=== PATIENT | female | born 1970 | race Asian ===

== ENCOUNTER 2020-11-29 07:58 | Day surgery (SDC) | payer OTHER ==
[2020-11-29] MEDS ORDERED: Ringers Lactate 1,000 ML IV ONE (08:35)
[2020-11-29] MEDS ORDERED: ONDANSETRON 4 MG/2 ML VIAL ONE (10:18)
[2020-11-29] MEDS ORDERED: MIDAZOLAM HCL 2 MG/2 ML INJ ONE (10:18)
[2020-11-29] MEDS ORDERED: FENTANYL CITR 100 MCG/2 ML ONE (10:18)
[2020-11-29] MEDS ORDERED: LIDOCAINE 2% MPF 5 ML VIAL ONE (10:18)
[2020-11-29] MEDS ORDERED: dexAMETHasone 10 MG/ML VIAL ONE (10:18)
[2020-11-29] MEDS ORDERED: propofoL 200 MG/20 ML VIAL IV ONE (10:18)
[2020-11-29] MEDS ORDERED: NA CHLORIDE 0.9% 1,000 ML ONE (10:47)
[2020-11-29] MEDS ORDERED: LIDOCAINE 1% W/EPI 1:100,000 MDV 20 ML VIAL ONE (11:03)
[2020-11-29] MEDS ORDERED: KETOROLAC 30 MG/ML INJ ONE (12:08)
[2020-11-29 12:34] VITALS: TEMP 97; O2SAT 100
[2020-11-29 16:10] VITALS: BP 128/61
--- NOTE | 2020-11-29 16:17 | OP ---
Date of Procedure: 11/29/2020 Surgeon: Dora Pace MD Patient Care Manager: No assistants. Preoperative Diagnoses: Abnormal uterine bleeding, endometrial polyp, and leiomyomata. Postoperative Diagnoses: Abnormal uterine bleeding, endometrial polyp, and leiomyomata, endometrial polyp confirmed. Procedures Performed: Operative hysteroscopy with endometrial polypectomy with MyoSure device and en dometrial sampling with the device as well which is a D and C. Anesthesia: General with LMA. Specimens: Endometrial polyp and curettings. Complications: No complications. Drains: No drains. Condition: Stable. Estimated Blood Loss: Minimal. Fluid Deficit: 25 mL normal saline was used. Findings: Uterus enlarged. Large posterior wall leiomyomata were also palpable on exam. On hystero scopic examination, there was a polyp in the posterior wall near the fundus and the endometrium appea red to be slightly irregular and thickened. The polyp was removed in its entirety and endometrial ti ssue was sampled. Indications: The patient is a 50-year-old with abnormal bleeding. On ultrasound, her stripe was thi ck. She was found to have multiple leiomyomata as well. However, her periods are fairly regular las ting a few days a month with light to moderate bleeding. Due to the thickness and heterogeneity of t he endometrial canal, hysteroscopy was performed in the office. Sampling was done. She was found to have an endometrial polyp; however, that was inaccessible to removal as an outpatient. She was cons ented to come to the hospital for removal of the polyp to rule out atypia or malignancy, which the pa tient was explained that this was a very small chance so that she can preserve her uterus without any concern for undiagnosed problems. Procedure In Detail: After consenting the patient in the office and then in the preop area with her by her side, brought back to the OR, placed in a supine fashion on the operating table. Gene ral anesthesia was given using LMA to keep her comfortable during the polypectomy. After the patient was placed in Trendelenburg position and in a dorsal lithotomy, vulva and vagina prepped and draped in a sterile fashion. Speculum placed to expose the cervix. Anterior lip grasped with 2 Allis clamp s. Diagnostic SlimLine hysteroscope introduced into the uterus. Polyp pulled out. Then MyoSure was opened. The MyoSure lens was used to prime the device and inflow and outflow channels. The set pre ssure was 80 mmHg and normal saline for infusion. The cervix was dilated to 22-Persian. Then, the sc ope was placed without any problems into the uterine cavity. The suction channel was removed and the MyoSure device was inserted. Adequate uterine distention was present and the entire mass was remove d. Endometrial curettings were also performed with this as there was some slight thickening of the w all. There was excellent hemostasis at the end of the case. All the instruments were removed. Inst rument, needle, and sponge counts were correct. Her deficit was 25 mL of normal saline. Specimen ba g was sent for permanent pathology, labeled endometrial polyp and curettings. The patient was recove red from anesthesia in the OR and taken to PACU in stable condition. She has a 1-week followup with me and findings discussed with . ANDREA Voice ID: [id number] Report ID: [id number]
== END 2020-11-29 13:33 | disposition home or self-care (01) ==
LOC: OR 07:58
PROVIDERS: ATTEND Obstetrics & Gynecology
PROC: 0UJD8ZZ Inspection of Uterus and Cervix, Via Natural or Artificial Opening Endoscopic (ICD-10-PCS; 2020-11-29)
PROC: 0UBC7ZX Excision of Cervix, Via Natural or Artificial Opening, Diagnostic (ICD-10-PCS; principal; 2020-11-29 09:15)
PROC: 0UDB7ZX Extraction of Endometrium, Via Natural or Artificial Opening, Diagnostic (ICD-10-PCS; 2020-11-29 09:15)
DX: N85.01 Benign endometrial hyperplasia (principal); N93.9 Abnormal uterine and vaginal bleeding, unspecified; D25.9 Leiomyoma of uterus, unspecified; N76.0 Acute vaginitis; N92.6 Irregular menstruation, unspecified; Z20.822 Contact with and (suspected) exposure to COVID-19
CPT/HCPCS: 88305; 58558; U0002; J2704; J2250; J3010; J1100; J7120; J7030; J2405

== ENCOUNTER 2021-07-04 10:38 | Day surgery (SDC) | payer OTHER ==
[2021-06-28 11:25] LABS: Urine Appearance CLOUDY (Clear); Urine Bilirubin NEGATIVE (Negative); Urine Blood 3+ (Negative); Urine Color YELLOW (Yellow); Urine Glucose NEGATIVE (Negative); Urine Protein NEGATIVE (Negative); Urine Specific Gravity <=1.005 (1.005-1.030); Urine Urobilinogen 0.2 mg/dL (0.2-1.0); Urine pH 6.5 (5.0-7.0)
[2021-06-28 11:28] LABS: Urine Microscopic Reflex ORDER UMIC
[2021-06-28 11:37] LABS: Urine Bacteria 20-50 /HPF (<20)
[2021-06-28 11:51] LABS: Absolute Lymphocytes (CBC) 2.2 K/uL (0.7-4.9); Basophils % 1.3 % (0-1.3); Hematocrit 38.7 % (36.0-45.0); Lymphocytes % 31.2 % (15.3-44.8); MPV 7.8 fL (7.6-11.3); RBC Red Blood Cell Count 4.36 M/uL (3.86-4.86)
[2021-06-28 17:34] LABS: Urine Appearance CLEAR (Clear); Urine Bilirubin NEGATIVE (Negative); Urine Blood 2+ (Negative); Urine Color YELLOW (Yellow); Urine Glucose NEGATIVE (Negative); Urine Protein NEGATIVE (Negative); Urine Specific Gravity <=1.005 (1.005-1.030); Urine Urobilinogen 0.2 mg/dL (0.2-1.0); Urine pH 6.5 (5.0-7.0)
[2021-06-28 17:43] LABS: Urine Microscopic Reflex ORDER UMIC
[2021-06-28 17:48] LABS: Urine Bacteria <20 /HPF (<20); Urine RBC <5 /HPF (NONE SEEN)
[2021-07-04 11:02] LABS: Specific Gravity 1.025 (1.005-1.030)
[2021-07-04] MEDS ORDERED: SCOPOLAMINE HYDROBROMIDE PATCH TD ONE (11:02)
[2021-07-04] MEDS ORDERED: CEFAZOLIN/NS 1gm 0 GM/0 ML BAG ONE (11:02)
[2021-07-04] MEDS ORDERED: Ringers Lactate 1,000 ML IV ONE (11:02)
[2021-07-04 11:24] VITALS: O2SAT 100
[2021-07-04] MEDS ORDERED: propofoL 200 MG/20 ML VIAL IV ONE (12:29)
[2021-07-04] MEDS ORDERED: FENTANYL CITR 250 MCG/5 ML ONE (12:29)
[2021-07-04] MEDS ORDERED: MIDAZOLAM HCL 2 MG/2 ML INJ ONE (12:29)
[2021-07-04] MEDS ORDERED: GLYCOPYRROLATE 0.2 MG/ML SYR ONE (12:29)
[2021-07-04] MEDS ORDERED: ROCURONIUM 50 MG/5 ML VIAL IV ONE (12:29)
[2021-07-04] MEDS ORDERED: LIDOCAINE 2% MPF 5 ML VIAL ONE (12:29)
[2021-07-04] MEDS ORDERED: ONDANSETRON 4 MG/2 ML VIAL ONE ×2 (12:30→17:22)
[2021-07-04] MEDS ORDERED: CEFAZOLIN/SWI 2gm 2 GM/20 ML SYR ONE (12:31)
[2021-07-04] MEDS ORDERED: NS 0.9% VIAL 10 ML ONE (12:40)
[2021-07-04] MEDS ORDERED: KETAMINE HCL 500 MG/5 ML VIAL ONE (12:40)
[2021-07-04] MEDS ORDERED: dexAMETHasone 10 MG/ML VIAL ONE (12:40)
[2021-07-04] MEDS ORDERED: BUPIVACAINE 0.25% PF 10 ML VIAL ONE ×2 (12:45→13:15)
[2021-07-04] MEDS ORDERED: KETOROLAC 30 MG/ML INJ ONE (15:24)
[2021-07-04] MEDS ORDERED: MEPERIDINE HCL 25 MG/ML SYR IM PRN (15:49)
[2021-07-04] MEDS ORDERED: HYDROCODONE/APAP 5/325 MG TAB PO PRN (15:49)
[2021-07-04] MEDS ORDERED: PROMETHAZINE INJ 25 MG/ML AMP IV PRN (15:49)
[2021-07-04] MEDS ORDERED: IBUPROFEN 200 MG TAB PO PRN (15:49)
--- NOTE | 2021-07-04 15:56 | P.BOP ---
Preoperative diagnosis: Endometrial hyperplasia, menorrhagia (AUB-M/O) Postoperative diagnosis: same Primary procedure: TLH BSO pelvic washings, endometriosis removal, cystoscopy Bag Valver: Ayse Pollard Estimated blood loss: min Specimen: uterus tubes ovaries pelvic washings endo with the specimen Findings: endometirosis extensive on serosa of uterus peritoneal implants Anesthesia: General Complications: None Implants: Adis on left uterine pedicle Fluids & blood products: UO 250; LR 1300 Transferred to: Recovery Room Condition: Good
[2021-07-04] MEDS ORDERED: PROMETHAZINE INJ 25 MG/ML AMP ONE (18:20)
--- NOTE | 2021-07-04 18:24 | OP ---
Date of Procedure: 07/04/2021 Surgeon: Dora Pace MD Inspector Technician: Ayse Marie. Preoperative Diagnoses: Endometrial hyperplasia, menorrhagia (AUB-M/O). Postoperative Diagnoses: Endometrial hyperplasia, menorrhagia (AUB-M/O) and endometriosis. Procedures Performed: Total laparoscopic hysterectomy, bilateral salpingo-oophorectomy, pelvic washi ngs, endometriosis removal, and cystoscopy. Anesthesia: General endotracheal. Estimated Blood Loss: Minimal. Specimens: Uterus, tubes, ovaries, pelvic washings on the specimen. Complications: No complications. Drains: No drains. Condition: Stable. Urine Output: 250. Fluids: LR 1300. Findings: Endometriosis extensively on the serosa of the uterus starting at the uterosacrals, latera l to them posterior wall of the uterus and anterior wall of the uterus including the fundus, especial ly. Mostly all the implants on the posterior aspect of the uterine wall. Adis was used for hemostasis on the left side after hemostasis was mostly secured with the help of bipolar cautery. There was good peristalsis of the ureters at the end of the laparoscopic case and patent ureters veri fied during cystoscopy. No evidence of any trauma to the bladder. 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 On fo llowup ultrasound 6 months later, she had still a thickened endometrium and bleeding pattern has unch anged. Due to the risk of atypia or to a malignancy progression was discussed with the patient, and was consented for hysterectomy as she had no future fertility plans. Procedure In Detail: After informed consent was verified, she was brought into the OR, placed in sup ine fashion on the operating table, and general anesthesia was given. She was placed in dorsal litho michelle position using Sabas stirrups and arms tucked by the side. Vulva, vagina, perineum, and abdomen were prepped and draped in a sterile fashion. Time-out was done. SCDs were started. Ancef 2 g wer e given and procedure was started. A large VCare was introduced into the uterus and fixed in place. Newell placed to drain the bladder a nd attached to retrograde filling. A 1 cm infraumbilical incision was made with a scalpel using the open laparoscopy technique. Fascia was incised and tagged with 0 Vicryl sutures. Peritoneum entered sharply. S-retractors were placed and Trevin introduced. Site of entry was unremarkable. Upper abdominal surface was unremarkable. N o evidence of any tumor or implants in the pelvic cavity after central 10 and left lower quadrant 5 w ere placed. Survey was conducted. Ureters were undistorted in their location. Endometriosis noted in the findings. LigaSure was taken. Peritoneum was opened up in the mesosalpinx and this was dissected to open the o varian pedicle. Dissection between the ureter and the IP ligament was performed. After the IP was i solated and far away from the ureter, this was cauterized and cut with the help of the LigaSure. The n, lateral peritoneal reflections were both opened up. Then, round ligament was taken down. Periton eum anteriorly and posteriorly were opened up to raise the bladder flap and dissecting the endometria l implants posteriorly near the distal left uterosacral. Incision was made in the posterior aspect. Then, pedicles were identified and isolated. Bladder was pushed down inferiorly creating an anterior vaginal flap. Same dissection was performed on the other side making a window between the ureter and the IP. Then, round ligament was also isolated and taken down with the help of the LigaSure. Posterior peritoneum taken down to the right uterosacral and anteriorly connected to the bladder flap. Vessels were diss ected and exposed, cauterized with bipolar, and taken with LigaSure on both sides. Then, the same ca rdinal ligament dissection was performed on each side detaching them. Circumferential colpotomy was performed with a monopolar hook blade and posteriorly as the VCare came up, the specimen was taken do wn with the help of the LigaSure. After the specimen was pulled out through the vagina with ovaries and tubes intact and attached, then thorough irrigation and suction were performed after the specimen was pulled out. Two angled 0 Vicr yl sutures were placed and then 2 layers of closure was performed to close the vaginal cuff with V-Lo c starting at the vaginal epithelium, subepithelium, and connective tissue, and then connective tissu e on anterior-posterior fuller from the second suture. Thorough irrigation and suction were performed here. There was excellent hemostasis. There was some bleeding from the left pedicle. This was picked up and cauterized, and there was some more bleeding, so the pedicle was isolated further, dissected back after identifying the ureter, and making sure that this was much more inferior. This pedicle was cauterized with the help of the Liga Sure. There was excellent hemostasis; however, just for security, Adis was placed through the lapa roscopic shafts. There was excellent hemostasis. No electrical, mechanical, or thermal injury to the ureters. All th e ports were removed under direct vision. Fascia at the umbilicus was closed with 0 Vicryl stitch an d a simple 0 Vicryl stitch at the suprapubic fascial site. All skin incisions were closed with the h elp of 3-0 chromic. All the instruments were counted. Newell was removed. Vaginal occluder was guillermo misty. Cystoscopy was performed with a 17-Cuban sheath, 30-degree lens, and normal saline. There wer e excellent jets of urine from both ureteric orifices. No evidence of any trauma to the trigone area above the trigone dome and lateral fuller were all visualized. The scope was pulled out after fillin g the bladder retrograde for 200 for her recovery. Estimated Blood Loss: Minimal. She has a followup of 1 week with me, abdominal binder and prescription called in for narcotics. RADHA/JARON Voice ID: [id number] Report ID: [id number]
[2021-07-04 18:49] VITALS: BP 139/75; TEMP 96.6
== END 2021-07-04 19:55 | disposition home or self-care (01) ==
LOC: OR 10:38
PROVIDERS: ATTEND Obstetrics & Gynecology
PROC: 0UT24ZZ Resection of Bilateral Ovaries, Percutaneous Endoscopic Approach (ICD-10-PCS; 2021-07-04)
PROC: 0UT74ZZ Resection of Bilateral Fallopian Tubes, Percutaneous Endoscopic Approach (ICD-10-PCS; 2021-07-04)
PROC: 0DBW4ZZ Excision of Peritoneum, Percutaneous Endoscopic Approach (ICD-10-PCS; 2021-07-04)
PROC: 0UT94ZZ Resection of Uterus, Percutaneous Endoscopic Approach (ICD-10-PCS; principal; 2021-07-04 12:15)
DX: N92.0 Excessive and frequent menstruation with regular cycle (principal); N85.00 Endometrial hyperplasia, unspecified; D25.9 Leiomyoma of uterus, unspecified; Z20.822 Contact with and (suspected) exposure to COVID-19
CPT/HCPCS: 87088; 85025; 87086; 36415; 86900; 88108; 86850; 81025; 86901; 88305; 88307; 58571; 58662; U0002; J2704; J2550; J2250; J3010; J1100; J0690; J7120; J2405 ×2; 81003; 81015